=== PATIENT | female | born 1970 | race American Indian/Alaskan Native ===

== ENCOUNTER 2017-11-10 06:33 | Emergency (ER) | payer MEDICAID ==
[2017-11-10 06:40] VITALS: BP 134/87
== END 2017-11-10 08:00 ==
LOC: ED 06:33
DX: M79.606 Pain in leg, unspecified (principal); Z53.21 Procedure and treatment not carried out due to patient leaving prior to being seen by health care provider

== ENCOUNTER 2018-05-09 08:22 | Emergency (ER) | payer MEDICAID ==
[2018-05-09 08:31] VITALS: BP 115/72
--- NOTE | 2018-05-09 09:02 | Emergency Department Report ---
ED General Adult HPI - General Chief complaint: Neuro Symptoms/Deficit Stated complaint: (L) HAND NUMB Time Seen by Provider: 05/09/18 08:47 Source: patient Mode of arrival: Ambulatory Limitations: No Limitations - History of Present Illness Initial comments: Patient presents to emergency department with the chief complaint of left hand numbness, tingling, pain has become worse over the last 3 days. 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 Patient states that she's had left hand pain and numbness quite some time with it being worse upon awakening. Patient denies any injury to her hand. Patient denies chest pain, shortness breath, normal pain, facial droop, slurred speech, muscle weakness. -: Gradual Location: upper extremity Radiation: non-radiation Severity scale (0 -10): 3 Quality: aching, sharp Consistency: constant Improves with: rest Worsens with: movement Associated Symptoms: denies other symptoms Treatments Prior to Arrival: none - Related Data Previous Rx's Medication Instructions Recorded Last Taken Type Meloxicam [Mobic] 15 mg PO DAILY PRN #10 tablet 09/01/15 Unknown Rx traMADol [Ultram 50 MG tab] 50 mg PO Q6HR PRN #15 tablet 09/01/15 Unknown Rx Diclofenac Sodium [Voltaren] 100 gm TP QID #1 gel..gram. 02/17/18 Unknown Rx Naproxen [Naprosyn TAB] 500 mg PO BID #12 tablet 02/17/18 Unknown Rx Ibuprofen [Motrin] 800 mg PO Q8HR PRN #30 tablet 05/09/18 Unknown Rx Prednisone [predniSONE 10 mg 10 mg PO .TAPER #1 tab.ds.pk 05/09/18 Unknown Rx (6-Day Pack, 21 Tabs)] Allergies Allergy/AdvReac Type Severity Reaction Status Date / Time No Known Allergies Allergy Verified 09/01/15 07:35 ED Review of Systems ROS: Stated complaint: (L) HAND NUMB Other details as noted in HPI Comment: All other systems reviewed and negative Constitutional: denies: chills, fever Eyes: denies: eye pain, eye discharge, vision change ENT: denies: ear pain, throat pain Respiratory: denies: cough, shortness of breath, wheezing Cardiovascular: denies: chest pain, palpitations Endocrine: no symptoms reported Gastrointestinal: denies: abdominal pain, nausea, diarrhea Genitourinary: denies: urgency, dysuria, discharge Musculoskeletal: denies: back pain, joint swelling, arthralgia Skin: denies: rash, lesions Neurological: other (left hand numbness, tingling, pain). denies: headache, weakness, paresthesias Psychiatric: denies: anxiety, depression Hematological/Lymphatic: denies: easy bleeding, easy bruising ED Past Medical Hx - Past Medical History Hx Hypertension: Yes Hx Diabetes: Yes Additional medical history: breast tumor - Surgical History Past Surgical History?: Yes Additional Surgical History: c sec X 1, breast - Social History Smoking Status: Current Every Day Smoker Substance Use Type: None - Medications Home Medications: Home Medications Medication Instructions Recorded Confirmed Last Taken Type Meloxicam [Mobic] 15 mg PO DAILY PRN #10 tablet 09/01/15 Unknown Rx traMADol [Ultram 50 MG tab] 50 mg PO Q6HR PRN #15 tablet 09/01/15 Unknown Rx Diclofenac Sodium [Voltaren] 100 gm TP QID #1 gel..gram. 02/17/18 Unknown Rx Naproxen [Naprosyn TAB] 500 mg PO BID #12 tablet 02/17/18 Unknown Rx Ibuprofen [Motrin] 800 mg PO Q8HR PRN #30 tablet 05/09/18 Unknown Rx Prednisone [predniSONE 10 mg 10 mg PO .TAPER #1 tab.ds.pk 05/09/18 Unknown Rx (6-Day Pack, 21 Tabs)] ED Physical Exam - General Limitations: No Limitations General appearance: alert, in no apparent distress - Head Head exam: Present: atraumatic, normocephalic - Eye Eye exam: Present: normal appearance, PERRL, EOMI - ENT ENT exam: Present: mucous membranes moist - Neck Neck exam: Present: normal inspection - Respiratory Respiratory exam: Present: normal lung sounds bilaterally. Absent: respiratory distress, wheezes, rales - Cardiovascular Cardiovascular Exam: Present: regular rate, normal rhythm. Absent: systolic murmur, diastolic murmur, rubs, gallop - GI/Abdominal GI/Abdominal exam: Present: soft, normal bowel sounds. Absent: distended, tenderness - Extremities Exam Extremities exam: Present: normal inspection, other (hypertrophy of the thenar compartment left hand) - Back Exam Back exam: Present: normal inspection - Neurological Exam Neurological exam: Present: alert, oriented X3, CN II-XII intact, other (positive Tinel's and Phalen's sign left hand). Absent: motor sensory deficit - Psychiatric Psychiatric exam: Present: normal affect, normal mood - Skin Skin exam: Present: warm, dry, intact, normal color. Absent: rash ED Course Vital Signs 05/09/18 08:30 Temperature 98.6 F Pulse Rate 94 H Respiratory 18 Rate Blood Pressure 115/72 O2 Sat by Pulse 96 Oximetry ED Medical Decision Making - Medical Decision Making Skeletal patient and need to wear her wrist cockup splint at night Social patient will follow up with occupational medicine at her job Critical care attestation.: If time is entered above; I have spent that time in minutes in the direct care of this critically ill patient, excluding procedure time. ED Disposition Clinical Impression: Radiculopathy, Carpal tunnel syndrome Disposition: TO HOME OR SELFCARE Is pt being admited?: No Does the pt Need Aspirin: No Condition: Stable Instructions: Carpal Tunnel Syndrome (ED) Additional Instructions: return if worse Please wear wrist cockup splint as instructed Please follow up with occupational medicine at your place of employment As discussed please do not take her naproxen and Voltaren while taking Motrin Prescriptions: Ibuprofen [Motrin] 800 mg PO Q8HR PRN #30 tablet PRN Reason: Pain Prednisone [predniSONE 10 mg (6-Day Pack, 21 Tabs)] 10 mg PO .TAPER #1 tab.ds.pk Referrals: ROBERT HALEY MD [Staff Physician] - 3-5 Days [facility] [Provider Group] - 3-5 Days [facility] [Provider Group] - 3-5 Days Time of Disposition: 09:00
== END 2018-05-09 09:56 | disposition home or self-care (01) ==
LOC: ED 08:22
DX: G56.02 Carpal tunnel syndrome, left upper limb (principal); M54.10 Radiculopathy, site unspecified; I10 Essential (primary) hypertension; E11.9 Type 2 diabetes mellitus without complications; F17.200 Nicotine dependence, unspecified, uncomplicated
CPT/HCPCS: 82962

== ENCOUNTER 2018-07-24 09:48 | Emergency (ER) | payer MEDICAID ==
[2018-07-24 10:01] VITALS: BP 139/87
--- NOTE | 2018-07-24 11:38 | Emergency Department Report ---
Chief Complaint: Back Pain/Injury Stated Complaint: BACK PAIN Time Seen by Provider: 07/24/18 11:37 - HPI History of Present Illness: VISUALIZED IN WAITING ROOM LOW BACK PAIN NO DYSURIA AMBULATORY - Exam Vital Signs: Vital Signs 07/24/18 09:59 Temperature 97.8 F Pulse Rate 81 Respiratory 18 Rate Blood Pressure 139/87 [Right] O2 Sat by Pulse 97 Oximetry MSE screening note: Focused history and physical exam performed. Due to findings the following was ordered: ED Disposition for MSE Condition: Stable Referrals: ALINA PLASENCIA MD [Primary Care Provider] - 3-5 Days
[2018-07-24] MEDS ORDERED: TORADOL IM ONE (13:33)
--- NOTE | 2018-07-24 13:33 | Emergency Department Report ---
HPI - General Chief Complaint: Back Pain/Injury Time Seen by Provider: 07/24/18 11:37 - HPI HPI: Patient is a 47-year-old female with a history of arthritis who presents to the ED complaining of her arthritis pain. Patient states that she's been here a c ouple times due to the flareup of her severe arthritis. Patient stated that certain foods flared up. Patient states that she knows everything she ate broccoli and she gets a flareup of arthritis. Patient states that her joints aching and throbbing in nature. She denies any injury, trauma, falls. ED Past Medical Hx - Past Medical History Hx Hypertension: Yes Hx Diabetes: Yes Additional medical history: breast tumor - Surgical History Past Surgical History?: Yes Additional Surgical History: c sec X 1, breast - Social History Smoking Status: Current Every Day Smoker Substance Use Type: None - Medications Home Medications: Home Medications Medication Instructions Recorded Confirmed Last Taken Type traMADol [Ultram 50 MG tab] 50 mg PO Q6HR PRN #15 tablet 09/01/15 Unknown Rx Diclofenac Sodium [Voltaren] 100 gm TP QID #1 gel..gram. 02/17/18 Unknown Rx Naproxen [Naprosyn TAB] 500 mg PO BID #12 tablet 02/17/18 Unknown Rx Ibuprofen [Motrin] 800 mg PO Q8HR PRN #30 tablet 05/09/18 Unknown Rx Prednisone [predniSONE 10 mg 10 mg PO .TAPER #1 tab.ds.pk 05/09/18 Unknown Rx (6-Day Pack, 21 Tabs)] Cyclobenzaprine [Flexeril] 10 mg PO QHS PRN #15 tablet 07/24/18 Unknown Rx Meloxicam [Mobic] 15 mg PO DAILY PRN #20 tablet 07/24/18 Unknown Rx ED Review of Systems ROS: Stated complaint: BACK PAIN Other details as noted in HPI Comment: All other systems reviewed and negative Physical Exam - Physical Exam Vital Signs: Vital Signs 07/24/18 09:59 Temperature 97.8 F Pulse Rate 81 Respiratory 18 Rate Blood Pressure 139/87 [Right] O2 Sat by Pulse 97 Oximetry Physical Exam: GENERAL: Alert and oriented x3, no apparent distress, Normal Gait, atraumatic. HEAD: Head is normocephalic and a-traumatic. NECK: Supple. Non edematous, No lymphadenopathy or thyromegaly. No C-spine tenderness, full range of motion LUNGS: Symetrical with respiration, No wheezing, no rales or crackles, CTAB. HEART: S1, S2 present, regular rate and rhythm without murmur, no rubs, no gallops. Non tender to palpation BACK: Full range of motion, no spinal tenderness, Tenderness to palpation of the trapezius muscles and latissimus dorsi muscles of the back EXTREMITIES/MUSCULOSKELETAL: No cyanosis, clubbing, rash, lesions or edema. Full ROM bilaterally. UE/LE Pulses 2+ bilaterally. LE and UE 5+ strength bi laterally, NEUROLOGIC: The patient is cooperative with no focal neurologic deficits. SKIN: Warm and dry, No lesions, No ulceration or induration present. ED Course Vital Signs 07/24/18 09:59 Temperature 97.8 F Pulse Rate 81 Respiratory 18 Rate Blood Pressure 139/87 [Right] O2 Sat by Pulse 97 Oximetry ED Medical Decision Making - Medical Decision Making 35-year-old female presents to ED with arthritic joint pain ED course: Patient received Toradol in ED. Vital signs are normal patient is in no acute distress Discussed with patient follow-up with primary care physician. Discussed the patient and take medications as prescribed. Patient has no neurological deficit. Patient is alert and oriented 3 and understands all instructions given. Discussed drowsiness effect of Flexeril makes her drowsy and not to operate machinery while taking flexeril Critical care attestation.: If time is entered above; I have spent that time in minutes in the direct care of this critically ill patient, excluding procedure time. ED Disposition Clinical Impression: Arthritis, Arthralgia Disposition: - TO HOME OR SELFCARE Is pt being admited?: No Does the pt Need Aspirin: No Condition: Stable Instructions: Osteoarthritis (ED), Arthralgia (ED) Additional Instructions: Make sure to follow up with the primary care physician as discussed. Take all your medications as you've been prescribed. If you have any worsening symptoms or develop new symptoms please return to ED immediately. Prescriptions: Cyclobenzaprine [Flexeril] 10 mg PO QHS PRN #15 tablet PRN Reason: Muscle Spasm Meloxicam [Mobic] 15 mg PO DAILY PRN #20 tablet PRN Reason: joint pain Referrals: ALINA PLASENCIA MD [Primary Care Provider] - 3-5 Days Forms: Work/School Release Form Time of Disposition: 13:36
== END 2018-07-24 14:28 | disposition home or self-care (01) ==
LOC: ED 09:48
DX: M19.072 Primary osteoarthritis, left ankle and foot (principal); M54.5 Low back pain; R22.41 Localized swelling, mass and lump, right lower limb; I10 Essential (primary) hypertension; E11.9 Type 2 diabetes mellitus without complications; F17.200 Nicotine dependence, unspecified, uncomplicated; Z98.890 Other specified postprocedural states
CPT/HCPCS: 96372; 99281; J1885

== ENCOUNTER 2018-12-05 08:08 | Emergency (ER) | payer MEDICAID ==
[2018-12-05] MEDS ORDERED: DECADRON IM ONE (08:20)
--- NOTE | 2018-12-05 08:21 | Emergency Department Report ---
ED Back Pain/Injury HPI - General Chief Complaint: Back Pain/Injury Stated Complaint: BACK PAIN Source: patient Limitations: No Limitations - History of Present Illness Initial Comments: 48yo comes to ER with flare of her arthritis related to eating her broccoli. She has a/c back pain and can not take nsaids due to stomach ulcer. no fever/chills/dysuria/abd pain/ numbness/tingling or incontinence Complaint: back pain -: year(s) Similar Symptoms Previously: Yes Place: home Radiation: none Severity: mild Improves With: medication Worsens With: movement, other (broccoli) Context: while lifting Associated Symptoms: denies other symptoms - Related Data Previous Rx's Medication Instructions Recorded Last Taken Type predniSONE [Deltasone] 20 mg PO DAILY #5 tablet 12/05/18 Unknown Rx Allergies Allergy/AdvReac Type Severity Reaction Status Date / Time No Known Allergies Allergy Verified 12/05/18 08:10 ED Review of Systems ROS: Stated complaint: BACK PAIN Other details as noted in HPI Comment: All other systems reviewed and negative ED Past Medical Hx - Past Medical History Medical history: diabetes, hypertension breast tumor ED Back Pain Physical Exam - Exam General: Vital signs noted. No distress. Alert and acting appropriately. Back/Abdomen: No Abdominal Tenderness Neuro: Yes Normal Sensation, Yes Normal DTR's, Yes Normal Gait, No Motor Weakness ED Course Vital Signs 12/05/18 08:11 Temperature 98.1 F Pulse Rate 84 Respiratory 18 Rate Blood Pressure 133/84 O2 Sat by Pulse 96 Oximetry ED Medical Decision Making - Medical Decision Making no fever/dysuria/incontinence etc no new trauma or fall works and has to lift heavy things neuro intact decadron IM dc home with PCP follow up Vital Signs 12/05/18 08:11 Temperature 98.1 F Pulse Rate 84 Respiratory 18 Rate Blood Pressure 133/84 O2 Sat by Pulse 96 Oximetry - Differential Diagnosis a/c back pain Critical care attestation.: If time is entered above; I have spent that time in minutes in the direct care of this critically ill patient, excluding procedure time. ED Disposition Clinical Impression: Back pain, Arthritis Disposition: DC-01 TO HOME OR SELFCARE Is pt being admited?: No Does the pt Need Aspirin: No Condition: Stable Instructions: Osteoarthritis (ED) Prescriptions: predniSONE [Deltasone] 20 mg PO DAILY #5 tablet Referrals: NARAYAN GUTIERREZ MD [Staff Physician] - 3-5 Days Time of Disposition: 08:21
[2018-12-05 08:41] VITALS: BP 131/84
== END 2018-12-05 08:40 | disposition home or self-care (01) ==
LOC: ED 08:08
DX: M54.9 Dorsalgia, unspecified (principal); M19.90 Unspecified osteoarthritis, unspecified site; I10 Essential (primary) hypertension; E11.9 Type 2 diabetes mellitus without complications; Z85.3 Personal history of malignant neoplasm of breast; Z79.899 Other long term (current) drug therapy
CPT/HCPCS: 96372; 99282; J1100

== ENCOUNTER 2018-12-24 04:15 | Emergency (ER) | payer MEDICAID ==
[2018-12-24 04:20] VITALS: BP 127/85
[2018-12-24] MEDS ORDERED: KETOROLAC 30 MG/1 ML INJ IM ONE (05:39)
[2018-12-24] MEDS ORDERED: dexAMETHasone 20 MG/5 ML VIAL IM ONE (05:39)
--- NOTE | 2018-12-24 06:06 | Emergency Department Report ---
ED General Adult HPI - General Chief complaint: Back Pain/Injury Stated complaint: BACK PAIN Source: patient Mode of arrival: Ambulatory Limitations: No Limitations - History of Present Illness Initial comments: Patient is a 48-year-old -Chinese female with a history of hypertension, [id number] diabetes and chronic osteoarthritis affecting multiple joints and low back who presents to the ED with complaint of acute onset persistent diffuse lower abdominal pain for the last 2 days. Patient states that the pain is characteristic of her chronic low back pain whenever it flares up. Patient denies dizziness, fall, traumatic injury, hematuria, heavy lifting, numbness and tingling or weakness of lower extremities bilaterally, urinary or bowel incontinence, saddle paresthesia, fever, chills, dysuria, urinary frequency and urgency, chest pain or shortness of breath or abdominal pain. MD Complaint: Lower back pain, chronic -: Sudden, days(s) (2) Location: back Radiation: non-radiation Severity scale (0 -10): 8 Quality: aching, sharp, constant Consistency: constant Improves with: none Worsens with: movement Associated Symptoms: denies other symptoms. denies: confusion, chest pain, cough, diaphoresis, fever/chills, headaches, loss of appetite, malaise, nausea/vomiting, rash, shortness of breath, syncope, weakness Treatments Prior to Arrival: none - Related Data Previous Rx's Medication Instructions Recorded Last Taken Type predniSONE [Deltasone] 40 mg PO DAILY #10 tablet 12/24/18 Unknown Rx tiZANidine [Zanaflex 4mg TAB] 4 mg PO Q8H PRN #15 tablet 12/24/18 Unknown Rx traMADol [Ultram] 50 mg PO Q6HR PRN #12 tablet 12/24/18 Unknown Rx Allergies Allergy/AdvReac Type Severity Reaction Status Date / Time No Known Allergies Allergy Verified 12/05/18 08:10 ED Review of Systems ROS: Stated complaint: BACK PAIN Other details as noted in HPI Constitutional: denies: chills, fever Eyes: denies: eye pain, eye discharge, vision change ENT: denies: ear pain, throat pain Respiratory: denies: cough, shortness of breath, wheezing Cardiovascular: denies: chest pain, palpitations Endocrine: no symptoms reported Gastrointestinal: denies: abdominal pain, nausea, diarrhea Genitourinary: denies: urgency, dysuria, discharge Musculoskeletal: back pain, arthralgia, myalgia. denies: joint swelling Skin: denies: rash, lesions Neurological: denies: headache, weakness, paresthesias Psychiatric: denies: anxiety, depression Hematological/Lymphatic: denies: easy bleeding, easy bruising ED Past Medical Hx - Past Medical History Previous Medical History?: Yes Hx Hypertension: Yes Hx Diabetes: Yes Hx Arthritis: Yes Additional medical history: breast tumor - Surgical History Past Surgical History?: Yes Hx Breast Surgery: Yes (removal tumor) Additional Surgical History: c sec X 1, breast tumor - Social History Smoking Status: Current Every Day Smoker Substance Use Type: None - Medications Home Medications: Home Medications Medication Instructions Recorded Confirmed Last Taken Type predniSONE [Deltasone] 40 mg PO DAILY #10 tablet 12/24/18 Unknown Rx tiZANidine [Zanaflex 4mg TAB] 4 mg PO Q8H PRN #15 tablet 12/24/18 Unknown Rx traMADol [Ultram] 50 mg PO Q6HR PRN #12 tablet 12/24/18 Unknown Rx ED Physical Exam - General Limitations: No Limitations General appearance: alert, in no apparent distress - Head Head exam: Present: atraumatic, normocephalic, normal inspection - Eye Eye exam: Present: normal appearance, PERRL, EOMI. Absent: scleral icterus, conjunctival injection - ENT ENT exam: Present: normal exam, normal orophraynx, mucous membranes moist, TM's normal bilaterally, normal external ear exam - Neck Neck exam: Present: normal inspection, full ROM. Absent: tenderness - Respiratory Respiratory exam: Present: normal lung sounds bilaterally. Absent: respiratory distress, wheezes, rales, stridor, chest wall tenderness, accessory muscle use, decreased breath sounds, prolonged expiratory - Cardiovascular Cardiovascular Exam: Present: regular rate, normal rhythm, normal heart sounds. Absent: systolic murmur, diastolic murmur, rubs, gallop - GI/Abdominal GI/Abdominal exam: Present: soft, normal bowel sounds. Absent: tenderness, guarding, rebound, hyperactive bowel sounds, hypoactive bowel sounds, organomegaly - Extremities Exam Extremities exam: Present: normal inspection, full ROM, normal capillary refill - Back Exam Back exam: Present: normal inspection, tenderness (palpable lumbar sacral paraspinal musculoskeletal tenderness), muscle spasm, paraspinal tenderness - Neurological Exam Neurological exam: Present: alert, oriented X3, CN II-XII intact, normal gait, reflexes normal - Psychiatric Psychiatric exam: Present: normal affect, normal mood - Skin Skin exam: Present: warm, dry, intact, normal color. Absent: rash ED Course Vital Signs 12/24/18 04:17 Temperature 98.1 F Pulse Rate 90 Respiratory 16 Rate Blood Pressure 127/85 O2 Sat by Pulse 96 Oximetry - Reevaluation(s) Reevaluation #1: 12/24/18 06:07 This is a 48-year-old -Chinese female with a history of chronic low back pain who presented to the ED with acute exacerbation of her low back pain for 2 days. In the ED, patient is alert and oriented 3 and is not in distress. Patient was treated for pain and discharge home on pain medications and muscle relaxants, and patient advised to return to the ED immediately if symptoms get worse otherwise follow-up with her primary care physician in 7-10 days for reevaluation. ED Medical Decision Making - Medical Decision Making This is a 48-year-old -Chinese female with a history of chronic low back pain who presented to the ED with acute exacerbation of her low back pain for 2 days. In the ED, patient is alert and oriented 3 and is not in distress. Patient was treated for pain and discharge home on pain medications and muscle relaxants, and patient advised to return to the ED immediately if symptoms get worse otherwise follow-up with her primary care physician in 7-10 days for reevaluation. - Differential Diagnosis Chronic low back pain; chronic osteoarthritis; muscle spasm Critical care attestation.: If time is entered above; I have spent that time in minutes in the direct care of this critically ill patient, excluding procedure time. ED Disposition Clinical Impression: Acute exacerbation of chronic low back pain, Spasm of muscle of lower back Disposition: DC-01 TO HOME OR SELFCARE Is pt being admited?: No Does the pt Need Aspirin: No Condition: Stable Instructions: Chronic Back Pain (ED), Muscle Spasm (ED), Osteoarthritis (ED) Additional Instructions: Take medications with food, drink plenty of fluids and follow-up with your primary care physician in 7-10 days for reevaluation. Return to the ED immediately if symptoms get worse. Prescriptions: predniSONE [Deltasone] 40 mg PO DAILY #10 tablet traMADol [Ultram] 50 mg PO Q6HR PRN #12 tablet PRN Reason: Pain tiZANidine [Zanaflex 4mg TAB] 4 mg PO Q8H PRN #15 tablet PRN Reason: Muscle Spasm Referrals: PRIMARY CARE, [Primary Care Provider] - 3-5 Days Time of Disposition: 06:04 Print Language: CITIZEN OF [place]
== END 2018-12-24 06:14 | disposition home or self-care (01) ==
LOC: ED 04:15
DX: M62.830 Muscle spasm of back (principal); M54.5 Low back pain; R10.84 Generalized abdominal pain; I10 Essential (primary) hypertension; E11.9 Type 2 diabetes mellitus without complications; M19.90 Unspecified osteoarthritis, unspecified site; F17.200 Nicotine dependence, unspecified, uncomplicated; Z98.890 Other specified postprocedural states
CPT/HCPCS: 96372; 99282; J1100; J1885

== ENCOUNTER 2019-01-24 03:27 | Emergency (ER) | payer MEDICAID ==
[2019-01-24 03:50] VITALS: BP 142/88
[2019-01-24] MEDS ORDERED: KETOROLAC 30 MG/1 ML INJ IM ONE (04:13)
[2019-01-24] MEDS ORDERED: dexAMETHasone 20 MG/5 ML VIAL IM ONE (04:13)
--- NOTE | 2019-01-24 04:20 | Emergency Department Report ---
ED Back Pain/Injury HPI - General Chief Complaint: Back Pain/Injury Stated Complaint: BACK PAIN Source: patient Limitations: No Limitations - History of Present Illness Initial Comments: Ms Delgado is s 48 y/o aaf with of low back pain presents for low back pain x 3 days. Pt denies fall injury or trauma. pain is described as 5/10 aching , pain is exacerbated by movement bending and twisting, pain is relieved by nsaids, pt is out of nsaids until follow up with pcp in 1 week, There is no dysuria frequency or urgency. no hematuria, no loss or decrease in bowel or bladder function. pt remains ambulatory to baseline per patient. MD Complaint: back pain Onset/Timin -: days(s) Similar Symptoms Previously: Yes Place: home Radiation: none Severity: moderate Severity scale (0 -10): 4 Quality: aching Consistency: constant Improves With: medication Worsens With: movement Context: while lifting, turning/twisting, bending Associated Symptoms: denies: numbness, difficulty walking, difficulty urinating, incontinence, fever/chills - Related Data Previous Rx's Medication Instructions Recorded Last Taken Type predniSONE [Deltasone] 40 mg PO DAILY #10 tablet 12/24/18 Unknown Rx tiZANidine [Zanaflex 4mg TAB] 4 mg PO Q8H PRN #15 tablet 12/24/18 Unknown Rx traMADol [Ultram] 50 mg PO Q6HR PRN #12 tablet 12/24/18 Unknown Rx Cyclobenzaprine [Flexeril] 10 mg PO TID PRN #30 tablet 01/24/19 Unknown Rx Naproxen 500 mg PO BID PRN #30 tablet 01/24/19 Unknown Rx predniSONE [Deltasone] 40 mg PO QDAY 5 Days #10 tab 01/24/19 Unknown Rx Allergies Allergy/AdvReac Type Severity Reaction Status Date / Time No Known Allergies Allergy Verified 12/05/18 08:10 ED Review of Systems ROS: Stated complaint: BACK PAIN Other details as noted in HPI Constitutional: denies: chills, fever Eyes: denies: eye pain, eye discharge, vision change ENT: denies: ear pain, throat pain Respiratory: denies: cough, shortness of breath, wheezing Cardiovascular: denies: chest pain, palpitations Endocrine: no symptoms reported Gastrointestinal: denies: abdominal pain, nausea, diarrhea Genitourinary: denies: urgency, dysuria, discharge Musculoskeletal: back pain, arthralgia. denies: myalgia Skin: denies: rash, lesions Neurological: denies: headache, weakness, paresthesias Psychiatric: denies: anxiety, depression Hematological/Lymphatic: denies: easy bleeding, easy bruising ED Past Medical Hx - Past Medical History Previous Medical History?: Yes Hx Hypertension: Yes Hx Diabetes: Yes Hx Arthritis: Yes Additional medical history: breast tumor - Surgical History Past Surgical History?: Yes Hx Breast Surgery: Yes (removal tumor) Additional Surgical History: c sec X 1, breast tumor - Social History Smoking Status: Never Smoker Substance Use Type: None - Medications Home Medications: Home Medications Medication Instructions Recorded Confirmed Last Taken Type predniSONE [Deltasone] 40 mg PO DAILY #10 tablet 12/24/18 Unknown Rx tiZANidine [Zanaflex 4mg TAB] 4 mg PO Q8H PRN #15 tablet 12/24/18 Unknown Rx traMADol [Ultram] 50 mg PO Q6HR PRN #12 tablet 12/24/18 Unknown Rx Cyclobenzaprine [Flexeril] 10 mg PO TID PRN #30 tablet 01/24/19 Unknown Rx Naproxen 500 mg PO BID PRN #30 tablet 01/24/19 Unknown Rx predniSONE [Deltasone] 40 mg PO QDAY 5 Days #10 tab 01/24/19 Unknown Rx ED Physical Exam - General Limitations: No Limitations General appearance: alert, in no apparent distress - Head Head exam: Present: atraumatic, normocephalic - Eye Eye exam: Present: normal appearance - ENT ENT exam: Present: mucous membranes moist - Neck Neck exam: Present: normal inspection - Respiratory Respiratory exam: Present: normal lung sounds bilaterally. Absent: respiratory distress - Cardiovascular Cardiovascular Exam: Present: regular rate, normal rhythm, normal heart sounds. Absent: systolic murmur, diastolic murmur, rubs, gallop - GI/Abdominal GI/Abdominal exam: Present: soft, normal bowel sounds. Absent: distended, tenderness, bruit, hernia - Rectal Rectal exam: Present: deferred - Extremities Exam Extremities exam: Present: normal inspection, full ROM, normal capillary refill. Absent: tenderness - Back Exam Back exam: Present: normal inspection, full ROM, tenderness, muscle spasm, paraspinal tenderness. Absent: CVA tenderness (R), CVA tenderness (L), vertebral tenderness, rash noted - Expanded Back Exam Expanded Back exam: Absent: saddle anesthesia Back exam: Negative Straight Leg Raising: Left, Right - Neurological Exam Neurological exam: Present: alert, oriented X3, reflexes normal. Absent: motor sensory deficit - Expanded Neurological Exam Expanded Patient oriented to: Present: person, place, time Speech: Present: fluid speech Motor strength exam: RUE: 5, LUE: 5, RLE: 5, LLE: 5 Best Eye Response (Apryl): (4) open spontaneously Best Motor Response ([place]ryl): (6) obeys commands Best Verbal Response ([place]): (5) oriented Apryl Total: 15 - Psychiatric Psychiatric exam: Present: normal affect, normal mood - Skin Skin exam: Present: warm, dry, intact, normal color. Absent: rash ED Course Vital Signs 01/24/19 03:33 Temperature 98.3 F Pulse Rate 90 Respiratory 18 Rate Blood Pressure 142/88 O2 Sat by Pulse 95 Oximetry ED Medical Decision Making - Medical Decision Making this is a low back strain , acute on chronic, plan: naproxen, flexeril, prednisone, moist heat therapy, follow up with ortho in 2-3 days. pt verbalized agreement and understanding with discharge plan. Dc 'd to self in stable condition at this time. Critical care attestation.: If time is entered above; I have spent that time in minutes in the direct care of this critically ill patient, excluding procedure time. ED Disposition Clinical Impression: Low back strain Qualifiers: Encounter type: initial encounter Qualified Code(s): S39.012A - Strain of muscle, fascia and tendon of lower back, initial encounter Disposition: DC-01 TO HOME OR SELFCARE Is pt being admited?: No Does the pt Need Aspirin: No Condition: Stable Instructions: Low Back Strain (ED), Chronic Back Pain (ED) Prescriptions: predniSONE [Deltasone] 40 mg PO QDAY 5 Days #10 tab Cyclobenzaprine [Flexeril] 10 mg PO TID PRN #30 tablet PRN Reason: Muscle Spasm Naproxen 500 mg PO BID PRN #30 tablet PRN Reason: pain Referrals: RAYMUNDO FUNES MD [Staff Physician] - 3-5 Days Forms: Work/School Release Form(ED) Time of Disposition: 04:29
== END 2019-01-24 04:35 | disposition home or self-care (01) ==
LOC: ED 03:27
DX: S39.012A Strain of muscle, fascia and tendon of lower back, initial encounter (principal); I10 Essential (primary) hypertension; E11.9 Type 2 diabetes mellitus without complications; M19.90 Unspecified osteoarthritis, unspecified site; Z98.890 Other specified postprocedural states; Z79.899 Other long term (current) drug therapy; X50.9XXA Other and unspecified overexertion or strenuous movements or postures, initial encounter; Y93.89 Activity, other specified; Y92.89 Other specified places as the place of occurrence of the external cause; Y99.8 Other external cause status
CPT/HCPCS: 96372; 99282; J1100; J1885

== ENCOUNTER 2019-03-29 21:21 | Emergency (ER) | payer SELFPAY ==
[2019-03-29 21:28] VITALS: BP 134/58
== END 2019-03-29 22:45 | disposition left against medical advice (07) ==
LOC: ED 21:21
DX: M54.9 Dorsalgia, unspecified (principal); Z53.21 Procedure and treatment not carried out due to patient leaving prior to being seen by health care provider

== ENCOUNTER 2019-03-30 05:17 | Emergency (ER) | payer SELFPAY ==
[2019-03-30 05:35] VITALS: BP 137/80
[2019-03-30] MEDS ORDERED: KETOROLAC 60 MG/2 ML INJ IM ONE (07:25)
--- NOTE | 2019-03-30 08:07 | Emergency Department Report ---
<JANELLEDESI DOUGLAS - Last Filed: 03/30/19 08:03> ED Back Pain/Injury HPI - General Chief Complaint: Back Pain/Injury Stated Complaint: BACK PAIN Time Seen by Provider: 03/30/19 07:03 Source: patient Limitations: No Limitations - History of Present Illness Initial Comments: 48 yo with hx of chronic low back pain. She reports flare up every 2-[address] [facility] she was not able to see her doctor today. Denies falls, or recent injury, no urinary symptoms. States this is her usual back pain MD Complaint: back pain -: Gradual Similar Symptoms Previously: Yes (Hx of chronic back pain ) Place: home Radiation: none Quality: aching Consistency: constant Improves With: none Worsens With: none Associated Symptoms: denies other symptoms - Related Data Previous Rx's Medication Instructions Recorded Last Taken Type predniSONE [Deltasone] 40 mg PO DAILY #10 tablet 12/24/18 Unknown Rx tiZANidine [Zanaflex 4mg TAB] 4 mg PO Q8H PRN #15 tablet 12/24/18 Unknown Rx traMADoL [Ultram] 50 mg PO Q6HR PRN #12 tablet 12/24/18 Unknown Rx Cyclobenzaprine [Flexeril] 10 mg PO TID PRN #30 tablet 01/24/19 Unknown Rx Naproxen 500 mg PO BID PRN #30 tablet 01/24/19 Unknown Rx Metaxalone [Skelaxin] 800 mg PO TID 7 Days #21 tablet 03/30/19 Unknown Rx predniSONE [Deltasone] 40 mg PO QDAY 5 Days #10 tab 03/30/19 Unknown Rx Allergies Allergy/AdvReac Type Severity Reaction Status Date / Time No Known Allergies Allergy Verified 12/05/18 08:10 ED Review of Systems Comment: All other systems reviewed and negative Constitutional: no symptoms reported Cardiovascular: denies: chest pain, palpitations, dyspnea on exertion, edema, paroxysmal nocturnal dyspnea Gastrointestinal: denies: abdominal pain, nausea, vomiting, constipation Genitourinary: denies: urgency, dysuria, frequency, hematuria, discharge Neurological: denies: headache, weakness, abnormal gait ED Past Medical Hx - Past Medical History Previous Medical History?: Yes Hx Hypertension: Yes Hx Diabetes: Yes Hx Arthritis: Yes Additional medical history: breast tumor - Surgical History Past Surgical History?: Yes Hx Breast Surgery: Yes (removal tumor) Additional Surgical History: c sec X 1, breast tumor - Social History Smoking Status: Current Every Day Smoker Substance Use Type: Alcohol - Medications Home Medications: Home Medications Medication Instructions Recorded Confirmed Last Taken Type predniSONE [Deltasone] 40 mg PO DAILY #10 tablet 12/24/18 Unknown Rx tiZANidine [Zanaflex 4mg TAB] 4 mg PO Q8H PRN #15 tablet 12/24/18 Unknown Rx traMADoL [Ultram] 50 mg PO Q6HR PRN #12 tablet 12/24/18 Unknown Rx Cyclobenzaprine [Flexeril] 10 mg PO TID PRN #30 tablet 01/24/19 Unknown Rx Naproxen 500 mg PO BID PRN #30 tablet 01/24/19 Unknown Rx Metaxalone [Skelaxin] 800 mg PO TID 7 Days #21 tablet 03/30/19 Unknown Rx predniSONE [Deltasone] 40 mg PO QDAY 5 Days #10 tab 03/30/19 Unknown Rx ED Physical Exam - General Limitations: No Limitations General appearance: alert, in no apparent distress - Head Head exam: Present: atraumatic - Eye Eye exam: Present: normal appearance - ENT ENT exam: Present: normal exam - Neck Neck exam: Present: normal inspection - Respiratory Respiratory exam: Present: normal lung sounds bilaterally. Absent: respiratory distress, wheezes, rales, rhonchi - Cardiovascular Cardiovascular Exam: Present: regular rate, normal heart sounds - GI/Abdominal GI/Abdominal exam: Present: soft. Absent: distended, tenderness - Back Exam Back exam: Present: normal inspection, full ROM. Absent: CVA tenderness (R), CVA tenderness (L), vertebral tenderness - Neurological Exam Neurological exam: Present: alert, oriented X3, normal gait - Psychiatric Psychiatric exam: Present: normal affect - Skin Skin exam: Present: warm, dry, intact ED Medical Decision Making - Medical Decision Making 48 yo female with hx of chronic back pain. Unable to see PCP today and out of her usual meds. Given Toradol 60mg IM. Discharge home with Robaxin, prednisone and acetaminophen. Discuss with patient the need to follow up with PCP for chronic back. She verbalizes understanding. Critical Care Time: No ED Disposition Clinical Impression: Chronic back pain Qualifiers: Back pain location: low back pain Back pain laterality: unspecified Sciatica presence: without sciatica Qualified Code(s): M54.5 - Low back pain Disposition: DC-01 TO HOME OR SELFCARE Is pt being admited?: No Does the pt Need Aspirin: No Condition: Stable Instructions: Arthralgia (ED), Chronic Back Pain (ED) Prescriptions: predniSONE [Deltasone] 40 mg PO QDAY 5 Days #10 tab Metaxalone [Skelaxin] 800 mg PO TID 7 Days #21 tablet Referrals: PRUDENCE CHRISTOPHER MD [Primary Care Provider] - 3-5 Days SHEYLA HOOPER MD [Staff Physician] - 3-5 Days Time of Disposition: 08:13 <FANTASMA JETER P - Last Filed: 03/30/19 13:26> ED Review of Systems ROS: Stated complaint: BACK PAIN Other details as noted in HPI ED Course Vital Signs 03/30/19 05:21 Temperature 98.5 F Pulse Rate 102 H Respiratory 16 Rate Blood Pressure 137/80 O2 Sat by Pulse 97 Oximetry ED Medical Decision Making - Medical Decision Making Attestation: Available for consultation Critical care attestation.: If time is entered above; I have spent that time in minutes in the direct care of this critically ill patient, excluding procedure time. ED Disposition Is pt being admited?: No
== END 2019-03-30 08:17 | disposition home or self-care (01) ==
LOC: ED 05:17
DX: M54.5 Low back pain (principal); G89.29 Other chronic pain; I10 Essential (primary) hypertension; E11.9 Type 2 diabetes mellitus without complications; M19.90 Unspecified osteoarthritis, unspecified site; F17.200 Nicotine dependence, unspecified, uncomplicated; Z98.890 Other specified postprocedural states; Z79.899 Other long term (current) drug therapy
CPT/HCPCS: 96372; 99282; J1885

== ENCOUNTER 2019-07-03 05:27 | Emergency (ER) | payer BC ==
[2019-07-03 05:31] VITALS: BP 151/91
--- NOTE | 2019-07-03 06:37 | Emergency Department Report ---
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 she reports no numbness no tingling no saddle paresthesia no loss of bowel or bladder no trauma no change in injury no change in in intensity no change in care characteristics since the onset MD Complaint: back pain -: Gradual, month(s) (6 or more) Similar Symptoms Previously: Yes Place: home Radiation: abdomen Severity: mild, moderate Quality: dull, aching Consistency: intermittent Improves With: medication Worsens With: movement Associated Symptoms: denies: confusion, chest pain, cough, difficulty urinating, incontinence, fever/chills, abdominal pain, loss of appetite, nausea/vomiting, shortness of breath, syncope - Related Data Previous Rx's Medication Instructions Recorded Last Taken Type predniSONE [Deltasone] 40 mg PO DAILY #10 tablet 12/24/18 Unknown Rx tiZANidine [Zanaflex 4mg TAB] 4 mg PO Q8H PRN #15 tablet 12/24/18 Unknown Rx traMADoL [Ultram] 50 mg PO Q6HR PRN #12 tablet 12/24/18 Unknown Rx Cyclobenzaprine [Flexeril] 10 mg PO TID PRN #30 tablet 01/24/19 Unknown Rx Naproxen 500 mg PO BID PRN #30 tablet 01/24/19 Unknown Rx Metaxalone [Skelaxin] 800 mg PO TID 7 Days #21 tablet 03/30/19 Unknown Rx predniSONE [Deltasone] 40 mg PO QDAY 5 Days #10 tab 03/30/19 Unknown Rx Allergies Allergy/AdvReac Type Severity Reaction Status Date / Time No Known Allergies Allergy Verified 12/05/18 08:10 ED Review of Systems ROS: Stated complaint: BACK PAIN Other details as noted in HPI Constitutional: denies: chills, fever Eyes: denies: eye pain, eye discharge, vision change ENT: denies: ear pain, throat pain Respiratory: denies: cough, shortness of breath, wheezing Cardiovascular: denies: chest pain, palpitations Endocrine: no symptoms reported Gastrointestinal: denies: abdominal pain, nausea, diarrhea Genitourinary: denies: urgency, dysuria, discharge Musculoskeletal: back pain. denies: joint swelling, arthralgia Skin: denies: rash, lesions Neurological: denies: headache, weakness, paresthesias Psychiatric: denies: anxiety, depression Hematological/Lymphatic: denies: easy bleeding, easy bruising ED Past Medical Hx - Past Medical History Hx Hypertension: Yes Hx Diabetes: Yes Hx Arthritis: Yes Additional medical history: breast tumor - Surgical History Hx Breast Surgery: Yes (removal tumor) Additional Surgical History: c sec X 1, breast tumor - Social History Smoking Status: Current Every Day Smoker Substance Use Type: Alcohol - Medications Home Medications: Home Medications Medication Instructions Recorded Confirmed Last Taken Type predniSONE [Deltasone] 40 mg PO DAILY #10 tablet 12/24/18 Unknown Rx tiZANidine [Zanaflex 4mg TAB] 4 mg PO Q8H PRN #15 tablet 12/24/18 Unknown Rx traMADoL [Ultram] 50 mg PO Q6HR PRN #12 tablet 12/24/18 Unknown Rx Cyclobenzaprine [Flexeril] 10 mg PO TID PRN #30 tablet 01/24/19 Unknown Rx Naproxen 500 mg PO BID PRN #30 tablet 01/24/19 Unknown Rx Metaxalone [Skelaxin] 800 mg PO TID 7 Days #21 tablet 03/30/19 Unknown Rx predniSONE [Deltasone] 40 mg PO QDAY 5 Days #10 tab 03/30/19 Unknown Rx ED Physical Exam - General Limitations: No Limitations General appearance: alert, in no apparent distress - Head Head exam: Present: atraumatic, normocephalic - Eye Eye exam: Present: normal appearance - ENT ENT exam: Present: mucous membranes moist - Neck Neck exam: Present: normal inspection - Respiratory Respiratory exam: Present: normal lung sounds bilaterally. Absent: respiratory distress - Cardiovascular Cardiovascular Exam: Present: regular rate, normal rhythm. Absent: systolic murmur, diastolic murmur, rubs, gallop - GI/Abdominal GI/Abdominal exam: Present: soft, normal bowel sounds. Absent: distended, tenderness, hyperactive bowel sounds - Extremities Exam Extremities exam: Present: normal inspection - Back Exam Back exam: Present: normal inspection, paraspinal tenderness, other (Negative seated straight leg raise). Absent: CVA tenderness (R), CVA tenderness (L), muscle spasm, vertebral tenderness - Neurological Exam Neurological exam: Present: alert, oriented X3, CN II-XII intact, normal gait. Absent: motor sensory deficit - Psychiatric Psychiatric exam: Present: normal affect, normal mood - Skin Skin exam: Present: warm, dry, intact, normal color. Absent: rash ED Course Vital Signs 07/03/19 05:30 Temperature 97.9 F Pulse Rate 87 Respiratory 20 Rate Blood Pressure 151/91 O2 Sat by Pulse 98 Oximetry Critical care attestation.: If time is entered above; I have spent that time in minutes in the direct care o f this critically ill patient, excluding procedure time. ED Disposition Clinical Impression: Chronic back pain, Chronic pain Disposition: MED SCREENING EXAM-LEFT Is pt being admited?: No Does the pt Need Aspirin: No Condition: Stable Instructions: Chronic Back Pain (ED) Referrals: SHEYLA HOOPER MD [Staff Physician] - 3-5 Days RAYMUNDO FUNES MD [Staff Physician] - 3-5 Days
== END 2019-07-03 07:30 | disposition left against medical advice (07) ==
LOC: ED 05:27
DX: M54.6 Pain in thoracic spine (principal); G89.29 Other chronic pain; I10 Essential (primary) hypertension; E11.9 Type 2 diabetes mellitus without complications; D49.3 Neoplasm of unspecified behavior of breast; M19.91 Primary osteoarthritis, unspecified site; F17.200 Nicotine dependence, unspecified, uncomplicated; Z98.890 Other specified postprocedural states; Z79.899 Other long term (current) drug therapy
CPT/HCPCS: 99281

== ENCOUNTER 2021-09-13 12:23 | Emergency (ER) | payer BC | END 2021-09-13 12:28 | disposition left against medical advice (07) | LOC: ED 12:23 | DX: J45.909 Unspecified asthma, uncomplicated (principal); Z53.21 Procedure and treatment not carried out due to patient leaving prior to being seen by health care provider ==